=== PATIENT | female | born 1965 | race Caucasian/White ===

== ENCOUNTER 2023-01-26 07:57 | Day surgery (SDC) | payer OTHER ==
[~2023-01-26] VITALS: Ht 152.4 cm; Wt 80.1 kg
[2023-01-26] MEDS ORDERED: WELLBUTRIN XL300 M1 PO (08:33)
[2023-01-26 09:39] LABS: HEMATOCRIT 43.9 % (37.0-47.0); HEMOGLOBIN 14.1 g/dl (12.5-16.0); MEAN CELL VOLUME 86 fl (80.0-100.0); MEAN CORPUSCULAR HEMOGLOBIN 28 pg (27-31); MEAN CORPUSCULAR HGB CONC 32 g/dl (33.0-37.0); PLATELET COUNT 198 K/mm3 (130-400); RED BLOOD COUNT 5.13 M/mm3 (4.10-5.30); REDCELL DISTRIBUTION WIDTH-CV 13.1 % (11.5-14.5)
[2023-01-26 10:03] LABS: ALBUMIN 3.8 gm/dL (3.5-5.0); BILIRUBIN,TOTAL 0.5 mg/dL (0.2-1.2); CALCIUM 9.1 mg/dL (8.4-10.2); CREATININE, serum 0.76 mg/dL (0.57-1.11); POTASSIUM 4.2 mmol/L (3.5-4.5); TOTAL PROTEIN 7.1 gm/dL (6.2-8.1)
[2023-01-26 10:10] VITALS: BP 134/68; PULSE 65; TEMP 97.6
[2023-01-26 10:17] LABS: BAND 2 % (0-10); BASOPHIL 1 % (0-2); EOSINOPHIL 2 % (0-4); LYMPHOCYTE 24 % (20.0-51.0); NEUTROPHILS 58 % (42.0-75.2); PLATELET ESTIMATE NORMAL (NORMAL)
[2023-01-26 10:23] LABS: THYROID STIMULATING HORMONE 2.729 uIU/mL (0.350-4.940)
[2023-01-26 10:49] VITALS: BP 105/45; PULSE 83; TEMP 97.9
[2023-01-26 11:05] VITALS: BP 112/74; PULSE 79
[2023-01-26 11:20] VITALS: BP 118/72; PULSE 76
[2023-01-26 11:35] VITALS: BP 124/74; PULSE 77
[2023-01-26 12:05] VITALS: BP 128/69; PULSE 78
--- NOTE | 2023-01-26 16:19 | NUR ---
[id number]: PT TO RECOVERY BAY 6 FROM OR S/P PORT-A-CATH PLACEMENT (LEFT CHEST) SLEEPY WITH PATENT AIRWAY, PLACED ON MONITOR, VSS ON RA DRESSINGS (BANDAID. GAUZE AND MEDIPORE TAPE) CDI RECEIVED REPORT AND ASSUMED CARE OF PT FROM ANNA AND JARON DTR AT BEDSIDE PROVIDED FOOD\FLUIDS, TOLERATING WELL REPORTING 2/10 PAIN AT SITE, AND MILD-MOD PATEL - DECLINED INTERVENTION THRU OUT STAY. PT A&O, NAD, VSS ON RA, TOLERATING PO, IS WITHOUT SIGNIFICANT COMPLAINT, WITH STEADY GAIT, POST-VOID BY END OF STAY IV D/C'D. D/C INSTRUCTIONS, ANY FOLLOW UP REVIEWED AND HANDED TO PT. ALL QUESTIONS AND CONCERNS ADDRESSED TO PT SATISFACTION. TAKEN TO EXIT VIA W/C WITH ALL BELONGINGS AND PAPERWORK IN HAND, ASSISTED INTO PASSENGER SEAT OF POV. DTR TO DRIVE HOME.
== END 2023-01-26 12:35 | disposition home or self-care (01) ==
LOC: SDCO 07:57
PROVIDERS: Internal Medicine
DX: Z45.2 Encounter for adjustment and management of vascular access device (principal); C54.1 Malignant neoplasm of endometrium; C78.6 Secondary malignant neoplasm of retroperitoneum and peritoneum
CPT/HCPCS: C1788; J0690; J1644; J2704; J3010; J7120

== ENCOUNTER → 2023-05-01 | Outpatient (CLI) | payer OTHER ==
[~2023-05-01] MED LIST: WELLBUTRIN XL300 M1 PO
== END ==
LOC: COL.RAD 12:20
DX: C54.1 Malignant neoplasm of endometrium (principal)